=== PATIENT | female | born 1990 | race Two or more races ===

== ENCOUNTER 2018-02-27 01:13 | Inpatient (IN) | payer MEDICAID ==
[2018-02-27] MEDS ORDERED: LORazepam 0.5 MG TABLET PO STA (01:30)
[2018-02-27 01:48] LABS: BASOPHILS % (AUTO) 0.4 %; EOSINOPHILS # (AUTO) 0.1 10^3/uL (0.0-0.7); EOSINOPHILS % (AUTO) 1.5 %; HGB - HEMOGLOBIN 12.4 g/dL (12.0-16.0); LYMPHOCYTES # (AUTO) 2.4 10^3/uL (1.5-3.5); MEAN CORPUSCULAR HEMOGLOBIN 28.3 pg (27.0-31.0); MEAN CORPUSCULAR HGB CONC 32.6 g/dL (32.0-36.0); MEAN CORPUSCULAR VOLUME 86.8 fL (81.0-99.0); MEAN PLATELET VOLUME 8.2 fL (7.9-10.8); MONOCYTES # (AUTO) 0.6 10^3/uL (0.0-1.0); NEUTROPHILS # (AUTO) 5.5 10^3/uL (1.5-6.6); NEUTROPHILS % (AUTO) 63.1 %; PLT - PLATELET COUNT 336 10^3/uL (130-450); RED BLOOD COUNT 4.38 10^6/uL (4.20-5.40); RED CELL DISTRIBUTION WIDTH 15.8 % (12.0-15.0); WHITE BLOOD COUNT 8.7 x10^3/uL (4.8-10.8)
[2018-02-27 01:59] LABS: ALBUMIN 4.4 g/dL (3.2-5.5); ALBUMIN/GLOBULIN RATIO 1.2 (1.0-2.2); BILIRUBIN,TOTAL 0.7 mg/dL (0.2-1.0); CALCIUM 9.5 mg/dL (8.5-10.3); CREATININE 0.6 mg/dL (0.4-1.0); TOTAL PROTEIN 8.2 g/dL (6.7-8.2)
[2018-02-27 02:05] LABS: BILIRUBIN,URINE NEGATIVE (NEGATIVE); GLUCOSE, URINE (UA) NEGATIVE (NEGATIVE); KETONES,URINE (UA) NEGATIVE (NEGATIVE); LEUKOCYTE ESTERASE, URINE NEGATIVE (NEGATIVE); NITRITE,URINE NEGATIVE (NEGATIVE); OCCULT BLOOD,URINE SMALL (NEGATIVE); PH,URINE 6.5 PH (5.0-7.5); PROTEIN,URINE NEGATIVE (NEGATIVE); UROBILINOGEN,URINE 0.2 (NORMAL) E.U./dL (NORMAL)
[2018-02-27 02:07] LABS: CLARITY,URINE CLEAR (CLEAR)
[2018-02-27 02:08] LABS: HCG UR QUAL NEGATIVE
[2018-02-27 02:12] LABS: BACTERIA,URINE Few /HPF (None Seen); MUCUS,URINE Marked Strands; SQUAMOUS EPITHELIAL CELL,UR MOD Squamous (<= Few)
--- NOTE | 2018-02-27 02:35 | XRAY Report ---
Procedure Date: 02/27/2018 Accession Number: [id number] / [id number] Procedure: XR - Chest 1 View X-Ray CPT Code: 24747 FULL RESULT: EXAM: CHEST RADIOGRAPHY EXAM DATE: 02/27/2018 02:18 AM. CLINICAL HISTORY: Chest pain. COMPARISON: None. TECHNIQUE: 1 view. FINDINGS: Lungs/Pleura: Large left pneumothorax with near complete left lung atelectasis. Possible mild right apical airspace opacity. No right pneumothorax or effusion. Mediastinum: Within exam limitations, the cardiomediastinal contour is normal. Other: None. IMPRESSION: 1. Large left pneumothorax without significant mediastinal shift. 2. Possible mild right apical airspace opacity versus superimposition of shadows. Continued follow-up suggested. JIM The above findings were discussed with Gaston Jiménez by Dr. Boris Sparrow at 02:34 hrs on 02/27/18.
[2018-02-27] MEDS ORDERED: LIDOCAINE 2%-EPI 1:100000 20 ML MDV SUBQ STA (02:46)
[2018-02-27] MEDS ORDERED: fentaNYL 100 MCG/2 ML VIAL IVP STA ×2 (02:46→03:51)
[2018-02-27] MEDS ORDERED: LIDOCAINE 2%-EPI 1:100000 20 ML MDV ONE (03:41)
--- NOTE | 2018-02-27 03:55 | ED Physician Documentation ---
PD HPI CHEST PAIN - Stated complaint Stated Complaint: CHEST PX - Chief complaint Chief Complaint: Resp - History obtained from History obtained from: Patient - History of Present Illness Timing - onset: How many weeks ago (1) Timing - onset during: Rest Timing - details: Gradual onset, Still present Quality: Pressure, Aching Location: Left chest, Right chest Associated symptoms: Shortness of air. No: Diaphoresis, Nausea Similar symptoms before: Has not had sx before Recently seen: Not recently seen - Additional information Additional information: Patient is a 27 year old female with no significant past medical history who is presenting to the emergency department for chest pain. patient states that the pain has been going on for about a week or so. patient states that she feels like she can't catch her breath. patient denies any fever or chills. patient denies any history of blood clots or exogenous estrogen. Review of Systems Constitutional: denies: Fever, Chills Cardiac: reports: Chest pain / pressure. denies: Pedal edema Respiratory: reports: Dyspnea. denies: Cough, Hemoptysis, Wheezing GI: denies: Nausea, Vomiting Musculoskeletal: denies: Extremity pain, Extremity swelling PD PAST MEDICAL HISTORY - Past Medical History Past Medical History: No - Past Surgical History Past Surgical History: No - Allergies Allergies/Adverse Reactions: Allergies Allergy/AdvReac Type Severity Reaction Status Date / Time No Known Drug Allergies Allergy Verified 02/27/18 01:21 - Social History Does the pt smoke?: No Smoking Status: Never smoker Does the pt drink ETOH?: Yes Does the pt have substance abuse?: No - Immunizations Immunizations are current?: Yes - POLST Patient has POLST: No PD ED PE NORMAL - Vitals Vital signs reviewed: Yes - General General: Alert and oriented X 3, No acute distress - HEENT HEENT: Atraumatic - Neck Neck: Supple, no meningeal sign, No JVD - Cardiac Cardiac: RRR - Abdomen Abdomen: Soft, Non tender, Non distended - Derm Derm: Normal color, Warm and dry - Extremities Extremities: No deformity, No calf tenderness / cord - Neuro Neuro: Alert and oriented X 3 Eye Opening: Spontaneous Motor: Obeys Commands Verbal: Oriented GCS Score: 15 - Psych Psych: Normal mood PD ED PE EXPANDED - Respiratory Respiratory: Decreased breath sounds, Left upper lobe, Left lower lobe Results - Vitals Vitals: Vital Signs - 24 hr 02/27/18 02/27/18 02/27/18 01:18 01:35 02:45 Temperature 37.0 C Heart Rate 93 103 H Respiratory 20 18 15 Rate Blood Pressure 124/79 118/80 130/80 O2 Saturation 99 99 100 02/27/18 02/27/18 02/27/18 02:55 03:02 03:20 Temperature Heart Rate 83 104 H 101 H Respiratory 18 22 16 Rate Blood Pressure 118/71 120/69 114/68 O2 Saturation 100 100 100 02/27/18 02/27/18 03:35 03:49 Temperature Heart Rate 102 H 72 Respiratory 18 18 Rate Blood Pressure 111/57 L 115/69 O2 Saturation 100 100 Oxygen O2 Source Room air - EKG (time done) 0128 Rate: Rate (enter#) (88) Cummings: Normal Intervals: Normal OK QRS: Normal Ischemia: Normal ST segments Compare to prior EKG: Old EKG unavailable - Labs Labs: Laboratory Tests 02/27/18 02/27/18 02/27/18 01:40 01:41 01:41 WBC 8.7 RBC 4.38 Hgb 12.4 Hct 38.0 MCV 86.8 MCH 28.3 MCHC 32.6 RDW 15.8 H Plt Count 336 MPV 8.2 Neut # (Auto) 5.5 Lymph # (Auto) 2.4 Franklin # (Auto) 0.6 Eos # (Auto) 0.1 Baso # (Auto) 0.0 Absolute Nucleated RBC 0.00 Nucleated RBC % 0.0 Sodium 139 Potassium 3.2 L Chloride 106 Carbon Dioxide 25 Anion Gap 8.0 BUN 11 Creatinine 0.6 Estimated GFR (MDRD) 121 Glucose 124 H Calcium 9.5 Total Bilirubin 0.7 AST 16 ALT 11 Alkaline Phosphatase 53 Troponin I Total Protein 8.2 Albumin 4.4 Globulin 3.8 Albumin/Globulin Ratio 1.2 Lipase 22 Urine Color YELLOW Urine Clarity CLEAR Urine pH 6.5 Ur Specific [place] 1.020 Urine Protein NEGATIVE Urine Glucose (UA) NEGATIVE Urine Ketones NEGATIVE Urine Occult Blood SMALL H Urine Nitrite NEGATIVE Urine Bilirubin NEGATIVE Urine Urobilinogen 0.2 (NORMAL) Ur Leukocyte Esterase NEGATIVE Urine RBC 6-10 H Urine WBC 0-3 Ur Squamous Epith Cells MOD Squamous H Urine Bacteria Few Urine Mucus Marked Strands Ur Microscopic Review INDICATED Urine Culture Comments NOT INDICATED Urine HCG, Qual NEGATIVE 02/27/18 01:41 WBC RBC Hgb Hct MCV MCH MCHC RDW Plt Count MPV Neut # (Auto) Lymph # (Auto) [place] # (Auto) Eos # (Auto) Baso # (Auto) Absolute Nucleated RBC Nucleated RBC % Sodium Potassium Chloride Carbon Dioxide Anion Gap BUN Creatinine Estimated GFR (MDRD) Glucose Calcium Total Bilirubin AST ALT Alkaline Phosphatase Troponin I < 0.04 Total Protein Albumin Globulin Albumin/Globulin Ratio Lipase Urine Color Urine Clarity Urine pH Ur Specific [place] Urine Protein Urine Glucose (UA) Urine Ketones Urine Occult Blood Urine Nitrite Urine Bilirubin Urine Urobilinogen Ur Leukocyte Esterase Urine RBC Urine WBC Ur Squamous Epith Cells Urine Bacteria Urine Mucus Ur Microscopic Review Urine Culture Comments Urine HCG, Qual - Rads (name of study) chest x-ray Radiology: Final report received, Discussed with rads (large right sided pneumothorax) repeat chest x-ray Radiology: Final report received (small residual pneumo) Procedures - Chest Tube (location) left Chest tube preparation: Consent obtained Chest tube location: Left, Intercostal space - enter (2), Other (mid clavicular line) Chest tube anesthesia: Lidocaine Chest tube return: Air, Connected to suction Chest tube after care: Confirmed with xray, Pt tolerated well PD MEDICAL DECISION MAKING - ED course Complexity details: reviewed old records, reviewed results, re-evaluated patient , considered differential, d/w patient, d/w strategy execution consultant ED course: Patient was seen and examined at bedside. ekg was performed and was within normal limits. labs were drawn and chest x-ray was performed. when patient returned from chest x-ray results were reviewed and discussed with radiologist. patient had a large, left sided pneumothorax. Patient was consented and a left sided thoracic vent was placed. Patient had good results and the pneumothorax was almost resolved. Case was discussed with the solutions executive cloud sales surgeon, Dr. Maria Luz Murphy and patient was admitted under his service for further evaluation and care. - Sepsis Event Vital Signs: Vital Signs - 24 hr 02/27/18 02/27/18 02/27/18 01:18 01:35 02:45 Temperature 37.0 C Heart Rate 93 103 H Respiratory 20 18 15 Rate Blood Pressure 124/79 118/80 130/80 O2 Saturation 99 99 100 02/27/18 02/27/18 02/27/18 02:55 03:02 03:20 Temperature Heart Rate 83 104 H 101 H Respiratory 18 22 16 Rate Blood Pressure 118/71 120/69 114/68 O2 Saturation 100 100 100 //18 02/27/18 03:35 03:49 Temperature Heart Rate 102 H 72 Respiratory 18 18 Rate Blood Pressure 111/57 L 115/69 O2 Saturation 100 100 Oxygen O2 Source Room air Departure - Departure Disposition: [facility] DC/Xfer Clinical Impression: Pneumothorax on left Condition: Good
--- NOTE | 2018-02-27 04:02 | XRAY Report ---
Procedure Date: 02/27/2018 Accession Number: [id number] / [id number] Procedure: XR - Chest 1 View X-Ray CPT Code: 65457 FULL RESULT: EXAM: CHEST RADIOGRAPHY EXAM DATE: 02/27/2018 03:48 AM. CLINICAL HISTORY: Chest tube placement for pneumothorax COMPARISON: Earlier same morning. TECHNIQUE: 1 view. FINDINGS: Lungs/Pleura: Minimal residual left pneumothorax post chest tube placement. Reexpansion of left lung. Previous impression right apical airspace opacity no longer seen. Mediastinum: Within exam limitations, the cardiomediastinal contour is normal. Other: None. IMPRESSION: Minimal residual left pneumothorax post chest tube placement. No mediastinal shift. RADIA
[2018-02-27] MEDS ORDERED: IBUPROFEN 600 MG TABLET PO PRN (04:30)
[2018-02-27] MEDS: oxyCODONE 5 MG TABLET PO PRN ×2 (05:33→10:27)
[2018-02-27] MEDS: KETOROLAC 30 MG/ML VIAL IVP PRN ×2 (06:16→14:40)
[2018-02-27] MEDS: SODIUM CHLORIDE FLUSH 0.9% 10 ML SYRINGE IVP PRN (06:17)
[2018-02-27] MEDS: ACETAMINOPHEN 325 MG TABLET PO PRN ×2 (06:17→10:27)
[2018-02-27] MEDS: D5.45NS W/20 MEQ KCL 1,000 ML IV SCH ×2 (06:17→16:44)
--- NOTE | 2018-02-27 07:31 | HISTORY & PHYSICAL EXAMINATION ---
Chief Complaint - Chief Complaint Chief Complaint: left sided chest pain and SOB History of Present Illness - Admitted From Admitted From:: ER - History Obtained From Records Reviewed: yes History obtained from: pt Exam Limitations: none - History of Present Illness HPI Comment/Other: 27 yo female with 2 week hx of intermittent left anterior chest pain and mild MCCORD which acutely worsened around 11pm last night prompting ER evaluation which showed large left tension PTX. She notes no prior similar sx, no fever/chills, cough, sputum production. Neg FH of spontaneous PTX. Sx markedly improved following chest tube insertion. Now c/o discomfort from tube, especially with inspiration, but no dyspnea. History - Past Medical History Cardiovascular: reports: None Neuro: reports: None Endocrine/Autoimmune: reports: None GI: reports: None : reports: None Psych: reports: None Musculoskeletal: reports: None Derm: reports: None MRSA Hx?: No - Family & Social History Family History Comment/Other: neg for spontaneous PTX Living arrangement: At home - Substance History Use: Uses substance without health or social issues: Alcohol (social, less than 1/day) Abuse: Recurrent use of substance despite neg consequences: NONE Dependence: Experiences withdrawal or developed tolerances: NONE - POLST Patient has POLST: No POLST Status: Full Code Meds/Allgy - Allergies Allergies/Adverse Reactions: Allergies Allergy/AdvReac Type Severity Reaction Status Date / Time No Known Drug Allergies Allergy Verified 02/27/18 01:21 Review of Systems - Constitutional Constitutional: reports: Fever, Chills, Weakness, Weight gain, Weight loss - Cardiovascular Cariovascular: reports: Chest pain, Exertional dyspnea. denies: Irregular heart rate, Palpitations, Edema, Lightheadedness, Syncope - Respiratory Respiratory: reports: SOB at rest, SOB with exertion, Pleuritic pain. denies: Cough, Sputum production, Wheezing - Gastrointestinal Gastrointestinal: denies: Abdominal pain - Hematologic/Lymphatic Hematologic/Lymphatic: denies: Petechiae, Blood clots, Bleeding tendencies - All Other Systems All Other Systems: reports: Reviewed and negative Exam - Vital Signs Reviewed Vital Signs: Yes Vital Signs: Vital Signs x48h Pulse Resp BP Pulse Ox 02/27/18 04:39 88 20 119/74 100 - Physical Exam General Appearance: positive: No acute distress, Alert Eyes Bilateral: positive: Normal inspection, Conjunctivae nml, No scleral icterus ENT: positive: ENT inspection nml, Pharynx nml, No signs of dehydration Neck: positive: No JVD, Trachea midline. negative: Lymphadenopathy (R), Lymphadenopathy (L) Respiratory: positive: Chest non-tender, No respiratory distress, Breath sounds nml, Other (Rubén-Close device on left anterior chest wall; connected to Atrium drainage system; visible air leak with expiration;). negative: Wheezes, Rales, Rhonchi Cardiovascular: positive: Regular rate & rhythm, No murmur, No gallop Peripheral Pulses: positive: 2+ Abdomen: positive: Non-tender, No organomegaly, No distention Skin: positive: Color nml, No rash, Warm, Dry. negative: Cyanosis, Diaphoresis Extremities: positive: Non-tender, Full ROM, Nml appearance. negative: Pedal edema, Calf tenderness Neurologic/Psychiatric: positive: Oriented x3 Conclusion/Plan - Problem List (1) Pneumothorax on left Conclusion/Plan: Spontaneous, with ongoing air leak at present; no visible bullous disease on CXR. Plan: continue chest tube to -20 cm underwater suction; supplemental 02; serial CXRs; CT chest to assess for bullous disease. Referral for VATS procedure if bullae noted or air leak fails to seal over next 48 hrs. - Lab Results Fish Bones: 02/27/18 01:41 02/27/18 01:41 - Diagnostic Imaging Results Diagnostic Imaging Results: positive: Final report reviewed, Read independently Diagnostic Imaging Results Comments: Initial CXR: large left PTX with midline mediastinum suggestive of tension. F/u CXR following chest tube insertion: almost complete resolution of the PTX, with small apical residual PTX evident. - EKG Results EKG Interpreted Independently: No EKG Comparison: No prior EKG EKG Findings: NL
[2018-02-27] MEDS: ONDANSETRON 4 MG/2 ML VIAL IVP PRN (10:23)
[2018-02-27] MEDS: SODIUM CHLORIDE FLUSH 0.9% 10 ML SYRINGE IVP SCH ×2 (10:32→16:44)
--- NOTE | 2018-02-27 11:27 | XRAY Report ---
Procedure Date: 02/27/2018 Accession Number: [id number] / [id number] Procedure: XR - Chest 1 View X-Ray CPT Code: 69026 FULL RESULT: EXAM: Chest 1 View X-Ray DATE: 02/27/2018 7:19 AM CLINICAL HISTORY: f/u ptx COMPARISON: 02/27/2018 3:48 AM TECHNIQUE: Single view of the chest. FINDINGS/IMPRESSION: Stable size left apical pneumothorax with left chest tube in place. No significant change compared with earlier the same day. RADIA
[2018-02-27] MEDS: POLYETHYLENE GLYCOL 3350 17 GM PACKET PO SCH (12:15)
[2018-02-28] MEDS: KETOROLAC 30 MG/ML VIAL IVP PRN ×2 (00:48→09:19)
[2018-02-28] MEDS: SODIUM CHLORIDE FLUSH 0.9% 10 ML SYRINGE IVP SCH ×3 (00:49→19:11)
[2018-02-28] MEDS: oxyCODONE 5 MG TABLET PO PRN ×5 (02:09→21:12)
[2018-02-28] MEDS: D5.45NS W/20 MEQ KCL 1,000 ML IV SCH ×2 (02:18→14:20)
--- NOTE | 2018-02-28 07:05 | XRAY Report ---
Procedure Date: 02/28/2018 Accession Number: [id number] / [id number] Procedure: XR - Chest 1 View X-Ray CPT Code: 45558 FULL RESULT: EXAM: CHEST RADIOGRAPHY EXAM DATE: 02/28/2018 05:53 AM. CLINICAL HISTORY: Follow-up chest tube. COMPARISON: 02/27/2018. TECHNIQUE: 1 view. FINDINGS: Lungs/Pleura: Small left apical pneumothorax measuring 1.4 cm. No alveolar consolidation or pleural effusion seen. Mediastinum: Within exam limitations, the cardiomediastinal contour is normal. Other: Chest tube remains in place on the left. IMPRESSION: 1. Left chest tube in place. Small left apical pneumothorax measuring 1.4 cm. RADIA
[2018-02-28] MEDS: ONDANSETRON 4 MG/2 ML VIAL IVP PRN ×3 (09:19→20:47)
[2018-02-28] MEDS: POLYETHYLENE GLYCOL 3350 17 GM PACKET PO SCH (10:01)
--- NOTE | 2018-02-28 14:53 | PROVIDER PROGRESS NOTE ---
Subjective - General Admit Date: 02/27/18 Procedure Date: 02/27/18 Post Op Days: 1 Procedure Performed: Rubén-Close chest tube insertion on left - Review of Systems Wound/Incisions: positive: Dressing dry and intact, Drainage (minimal) Drain Type: Atrium underwater seal chest tube drainage system Drain Output Description: serosanguinous Approximate mls Output: 10/24hrs General: positive: No symptoms Pulmonary: positive: Pleuritic chest pain (mild, well controlled with analgesics ). negative: Shortness of breath, Cough, Sputum, Hemoptysis, Wheezing Cardiovascular: positive: No symptoms Gastrointestinal: positive: No symptoms All Other Systems: positive: Reviewed and negative - Other Other Information/Narrative: Tolerating chest tube well at present. Objective - Patient Data Reviewed Vital Signs: Yes Vital Signs: Vital Signs x48h Temp Pulse Resp BP Pulse Ox 02/28/18 07:48 37.0 C 66 18 106/53 L 99 Weight: Weight 02/26/18 02/27/18 02/28/18 23:59 23:59 23:59 Weight (kg) 52 kg Intake & Output: Intake and Output Totals x24h 02/26/18 02/27/18 02/28/18 23:59 23:59 23:59 Intake Total 2046 2262.667 Output Total 15 Balance 2046 2247.667 - Lab Results Lab Results: 02/27/18 01:41 02/27/18 01:41 - Imaging Results Radiology Imaging: positive: Final report received, EMP read indepedently Imaging Results Comments: persistent small apical PTX, unchanged from yesterday. - Current Medications Current Medications: Current Medications Generic Name Dose Route Start Last Admin Trade Name Freq PRN Reason Stop Dose Admin Acetaminophen 650 mg 02/27/18 04:30 02/27/18 10:27 Tylenol PO 650 mg Q4HR PRN Administration Pain 1 to 4 Potassium Chloride/Dextrose/Sod Cl 1,000 mls @ 80 mls/hr 02/27/18 05:00 02/28 14:20 D5.45ns W/20 Meq Kcl IV 80 mls/hr .[id number] STARR Administration Ketorolac Tromethamine 30 mg 02/27/18 06:06 02/28/18 09:19 Toradol Inj IVP 03/04/18 06:05 30 mg Q6HR PRN Administration PAIN Ondansetron HCl 4 mg 02/27/18 04:30 02/28/18 14:18 Zofran Inj IVP 4 mg Q6HR PRN Administration Nausea / Vomiting Oxycodone HCl 5 mg 02/27/18 04:30 02/28/18 14:18 Roxicodone PO 5 mg Q4HR PRN Administration Pain 5 to 7 Polyethylene Glycol 17 gm 02/27/18 09:00 02/28/18 10:01 Miralax PO Not Given DAILY [facility] Sodium Chloride 10 ml 02/27/18 04:30 02/27/18 06:17 Normal Saline Flush 0.9% IVP 10 ml PRN PRN Administration NEEDED PER PROVIDER ORDERS Sodium Chloride 10 ml 02/27/18 09:00 02/28/18 10:01 Normal Saline Flush 0.9% IVP 10 ml 0100,0900,1700 [facility] Administration - Physical Exam Wound/Incisions: positive: Dressing dry and intact, Other (Rubén close device in place.) General Appearance: positive: No acute distress, Alert Respiratory: positive: Chest non-tender, No respiratory distress, Breath sounds nml, Other (small air leak persists with each expiration; tube on -20 cm H2O suction.). negative: Wheezes, Rales, Rhonchi Cardiovascular: positive: Regular rate & rhythm, No murmur, No gallop Extremities: positive: Nml appearance, No pedal edema. negative: Calf tenderness Neurologic/Psychiatric: positive: Oriented x3 ABX Reporting Has patient been on IV antibiotics over the past 48 hours?: No Impression/Plan - Problem List Problem List: Left spontaneous PTX; clinically doing well except small persistent air leak. Plan: continue present therapy. If air leak persists tomorrow, after 48 hours of therapy, will try switching to water seal, and obtain a chest CT.
[2018-02-28] MEDS: SODIUM CHLORIDE FLUSH 0.9% 10 ML SYRINGE IVP PRN (20:54)
[2018-03-01] MEDS: SODIUM CHLORIDE FLUSH 0.9% 10 ML SYRINGE IVP SCH ×2 (00:31→10:02)
[2018-03-01] MEDS: oxyCODONE 5 MG TABLET PO PRN (05:44)
[2018-03-01 06:28] LABS: CALCIUM 8.7 mg/dL (8.5-10.3); CREATININE 0.6 mg/dL (0.4-1.0)
--- NOTE | 2018-03-01 07:01 | XRAY Report ---
Procedure Date: 03/01/2018 Accession Number: [id number] / [id number] Procedure: XR - Chest 1 View X-Ray CPT Code: 45439 FULL RESULT: EXAM: CHEST RADIOGRAPHY EXAM DATE: 03/01/2018 06:37 AM. CLINICAL HISTORY: Follow-up pneumothorax. COMPARISON: 02/28/2018, 0552 hrs.. TECHNIQUE: 1 view. FINDINGS: Lungs/Pleura: No alveolar consolidation or pleural effusion seen. Increased left pneumothorax, moderate to large, measuring 4.1 cm at the apex. Mediastinum: Within exam limitations, the cardiomediastinal contour is normal. Other: Left chest tube remains in place. IMPRESSION: 1. Increased left pneumothorax, now moderate to large, measuring 4.1 cm at the apex. 2. Left chest tube remains in place. RADIA The above findings were discussed with Yazan Murphy by Dr. Ac Orantes at 06:58 hrs on 03/01/18.
--- NOTE | 2018-03-01 07:01 | CT Report ---
Procedure Date: 03/01/2018 Accession Number: [id number] / [id number] Procedure: CT - Chest W/O CPT Code: FULL RESULT: EXAM: CT CHEST EXAM DATE: 03/01/2018 06:38 AM. CLINICAL HISTORY: Spontaneous pneumothorax; evaluate for bullous disease. COMPARISONS: None. TECHNIQUE: Routine helical CT imaging was performed through the chest. IV contrast: None. Reconstructions: Coronal and sagittal. In accordance with CT protocol optimization, one or more of the following dose reduction techniques were utilized for this exam: automated exposure control, adjustment of mA and/or KV based on patient size, or use of iterative reconstructive technique. FINDINGS: Lungs/Pleura: Mild biapical scarring. Mild bibasilar atelectasis. No significant bullous changes are appreciated. No shirlene alveolar consolidation. No pleural effusion. Moderate to large left pneumothorax. Mediastinum: Heart size is normal. No lymphadenopathy seen. Great vessels are unremarkable on this noncontrast examination. Bones: Unremarkable. Visualized Abdomen: Unremarkable. Other: Anterior chest tube in place on the right. This extends about 8.5 cm into the pleural space. IMPRESSION: 1. No significant bullous disease is appreciated. 2. Moderate to large left pneumothorax. Anterior left chest tube in place. RADIA The above findings were discussed with Yazan Murphy by Dr. Ac Orantes at 07:00 hrs on 03/01/18.
--- NOTE | 2018-03-01 08:07 | XRAY Report ---
Procedure Date: 03/01/2018 Accession Number: [id number] / [id number] Procedure: XR - Chest 1 View X-Ray CPT Code: 81278 FULL RESULT: EXAM: CHEST RADIOGRAPHY EXAM DATE: 03/01/2018 07:27 AM. CLINICAL HISTORY: F/u PTX; pt back on suction. COMPARISON: 5:56 AM chest x-ray same day. TECHNIQUE: 1 view. Exam time 7:11 AM FINDINGS: Lungs/Pleura: Enlarging left apical pneumothorax of 5 cm pleural separation, previously 4.1 cm. Stable lateral left apical chest tube. Mediastinum: Within exam limitations, the cardiomediastinal contour is normal. Other: None. IMPRESSION: 1. Moderate left-sided pneumothorax with interval increase in size. A subsequent chest x-ray has already been taken. Please see report for 7:43 AM film. RADIA
--- NOTE | 2018-03-01 08:08 | XRAY Report ---
Procedure Date: 03/01/2018 Accession Number: [id number] / [id number] Procedure: XR - Chest 1 View X-Ray CPT Code: 15809 FULL RESULT: EXAM: CHEST RADIOGRAPHY EXAM DATE: 03/01/2018 07:55 AM. CLINICAL HISTORY: F/u left PTX, after chest tube manipulation. COMPARISON: 7:11 AM chest x-ray same day. TECHNIQUE: 1 view. Exam time 7:43 AM FINDINGS: Lungs/Pleura: Left apical pneumothorax with 1.2 cm pleural separation, previously 5 cm on 7:11 AM film. Stable lateral left apical chest tube. Mediastinum: Within exam limitations, the cardiomediastinal contour is normal. Other: None. IMPRESSION: 1. Significant decrease in size of left apical pneumothorax since prior chest x-ray same day. RADIA
--- NOTE | 2018-03-01 08:32 | PROVIDER PROGRESS NOTE ---
Subjective - General Admit Date: 02/27/18 Procedure Date: 02/27/18 Post Op Days: 2 Procedure Performed: Rubén-Close chest tube insertion on left - Review of Systems Wound/Incisions: positive: Dressing dry and intact, Other (Rubén close device in place.) Drain Type: Atrium underwater seal chest tube drainage system Drain Output Description: serosanguinous Approximate mls Output: 20/24hrs General: positive: No symptoms Pulmonary: positive: Pleuritic chest pain (mild, well controlled with analgesics ). negative: Shortness of breath, Cough, Sputum, Hemoptysis, Wheezing Cardiovascular: positive: No symptoms Gastrointestinal: positive: No symptoms All Other Systems: positive: Reviewed and negative - Other Other Information/Narrative: Pt's chest tube was placed on water seal and sent to the department for a f/u CXR and chest CT. These studies showed enlargement of the PTX. Pt was returned to her room and suction was reapplied; a f/u CXR showed no improvement. Pt continued to be asymptomatic however, with no dyspnea and O2 sat of 100% on 2l by nasal cannula. Pt reports several prior episodes of pneumonia as a child; her PPD was neg in 2008. Objective - Patient Data Reviewed Vital Signs: Yes Vital Signs: Vital Signs x48h Temp Pulse Resp BP Pulse Ox 03/01/18 08:06 36.8 C 74 16 111/51 L 100 Weight: Weight 02/27/18 02/28/18 03/01/18 23:59 23:59 23:59 Weight (kg) 52 kg Intake & Output: Intake and Output Totals x24h 02/27/18 02/28/18 03/01/18 23:59 23:59 23:59 Intake Total 2045 2662.667 350 Output Total 21 6 Balance 2045 2641.667 344 - Lab Results Lab Results: 02/27/18 01:41 03/01/18 06:05 Other Lab Results: Lab Results x24hrs 03/01/18 Range/Units 06:05 Sodium 135 (135-145) mmol/L Potassium 3.8 (3.5-5.0) mmol/L Chloride 101 (101-111) mmol/L Carbon Dioxide 26 (21-32) mmol/L Anion Gap 8.0 (6-13) BUN 9 (6-20) mg/dL Creatinine 0.6 (0.4-1.0) mg/dL Estimated GFR (MDRD) 121 (>89) Glucose 109 H (70-100) mg/dL Calcium 8.7 (8.5-10.3) mg/dL - Imaging Results Radiology Imaging: positive: Final report received, Discussed with rads, EMP read contemporaneously Imaging Results Comments: Pt's chest tube was placed on water seal and sent to the department for a f/u CXR and chest CT. These studies showed enlargement of the PTX. chest tube in good position and biapical scarring on CT. Pt was returned to her room and suction was reapplied; a f/u CXR showed no improvement. Exam of drainage system showed no evidence of an air leak, suggesting malfunction of the system; the pink diaphragm was moving with cough suggesting patency of the chest tube; the suction tube connecting to the Rubén Close device was removed and replaced, with resultant resumption of nl function of the system, with air leak now again noted, and f/u CXR showed return to the appearance noted yesterday, with a small apical residual PTX and the chest tube in good position. - Current Medications Current Medications: Current Medications Generic Name Dose Route Start Last Admin Trade Name Freq PRN Reason Stop Dose Admin Acetaminophen 650 mg 02/27/18 04:30 02/27/18 10:27 Tylenol PO 650 mg Q4HR PRN Administration Pain 1 to 4 Ketorolac Tromethamine 30 mg 02/27/18 06:06 02/28/18 09:19 Toradol Inj IVP 03/04/18 06:05 30 mg Q6HR PRN Administration PAIN Ondansetron HCl 4 mg 02/27/18 04:30 02/28/18 20:47 Zofran Inj IVP 4 mg Q6HR PRN Administration Nausea / Vomiting Oxycodone HCl 5 mg 02/27/18 04:30 03/01/18 05:44 Roxicodone PO 5 mg Q4HR PRN Administration Pain 5 to 7 Polyethylene Glycol 17 gm 02/27/18 09:00 02/28/18 10:01 Miralax PO Not Given DAILY STARR Sodium Chloride 10 ml 02/27/18 04:30 02/28/18 20:54 Normal Saline Flush 0.9% IVP 10 ml PRN PRN Administration NEEDED PER PROVIDER ORDERS Sodium Chloride 10 ml 02/27/18 09:00 06/20/18 00:31 Normal Saline Flush 0.9% IVP 10 ml 0100,0900,1700 [facility] Administration - Physical Exam Wound/Incisions: positive: Dressing dry and intact General Appearance: positive: No acute distress, Alert Neck: positive: No JVD, Trachea midline Respiratory: positive: Chest non-tender, Other (slight decrease in breath sounds at left apex.). negative: Wheezes, Rales, Rhonchi Cardiovascular: positive: Regular rate & rhythm, No murmur, No gallop Abdomen: positive: Non-tender Skin: positive: Color nml, No rash, Warm, Dry. negative: Cyanosis Extremities: positive: Non-tender, Full ROM, Nml appearance, No pedal edema. negative: Calf tenderness Neurologic/Psychiatric: positive: Oriented x3 ABX Reporting Has patient been on IV antibiotics over the past 48 hours?: No Impression/Plan - Problem List Problem List: Spontaneous left PTX with persistent air leak suggesting non healing broncho pleural fistula, possibly related to apical scarring/damage to lung from prior episode(s) of pneumonitis. Pt failed trial on water seal, and now would appear to benefit from a VATS procedure to stop the air leak. Discussed with pt, who is agreable to transfer to for same. Transfer arrangements will be made.
[2018-03-01] MEDS: ONDANSETRON 4 MG/2 ML VIAL IVP PRN (10:02)
--- NOTE | 2018-03-01 11:37 | Discharge Plan ---
Discharge Plan Disposition: 02 Transfer Acute Care Hosp Condition: Good Diet: Regular Activity Restrictions: elevate HOB 30 degrees Shower Restrictions: Yes Additional Instructions or Follow Up instructions: Pt will be transferred to [facility] for Thoracic Surgical consultation and treatment as appropriate. No Smoking: If you smoke, Please STOP! Call for help.
--- NOTE | 2018-03-01 11:42 | DISCHARGE SUMMARY ---
"Discharge Summary Admit Date: 02/27/18 Discharge Date: 03/01/18 Discharging Provider: Dr. Yazan Murphy Code Status: Attempt Resuscitation Condition at Discharge: Good Discharge Disposition: 02 Transfer Acute Care Hosp Discharge Facility Name: [facility] - DIAGNOSES Admission Diagnoses: Spontaneous left pneumothorax. 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 - HPI History of Present Illness: See H&P by Dr. Murphy - CONSULTS | PROCEDURES Procedures: Rubén-close chest tube placed on 02/27/18 by ER physician. - HOSPITAL COURSE Hospital Course: Pt's sx resolved with chest tube placement; serial chest xrays showed persistent small left apical PTX, with tube in good position. Persistent air leak was noted with -20 cm water suction after 48 hours of therapy. Trial of water seal resulted in recurrence of moderately large PTX. CT chest showed biapical scarring and possible small bleb formation on the left. Suction was resumed and after correcting a temporary malfunction in the chest tube system, her left lung once again was nearly fully expanded, with persistent air leak. Case was discussed with Dr. Magdy Agustin, thocacic surgeon at [facility], who agreed with and accepted transfer of pt for consideration of VATS therapy. Pt is agreeable to transfer. Pt has remained stable with O2 sat 100% on 2l/min nasal cannula, stable vs and comfortable with unlabored respiration. Pt will be transferred with continued chest tube suction and supplemental oxygen. - ALLERGIES Allergies/Adverse Reactions: Allergies Allergy/AdvReac Type Severity Reaction Status Date / Time No Known Drug Allergies Allergy Verified 02/27/18 01:21 - MEDICATIONS Home Medications: Ambulatory Orders Medication Instructions Recorded Confirmed No Known Home Medications [No 02/27/18 02/27/18 Known Home Medications] - PHYSICAL EXAM AT DISCHARGE General Appearance: positive: No acute distress, Alert Eyes Bilateral: positive: Conjunctivae nml, No scleral icterus Neck: positive: No JVD, Trachea midline Respiratory: positive: Chest non-tender, No respiratory distress, Other (slight decrease in breath sounds apically on left; Rubén Close device in good position.) . negative: Wheezes, Rales, Rhonchi Cardiovascular: positive: Regular rate & rhythm, No murmur, No gallop Abdomen: positive: Non-tender Skin: positive: Color nml, Warm, Dry. negative: Cyanosis Extremities: positive: Nml appearance, No pedal edema. negative: Calf tenderness Neurologic/Psychiatric: positive: Oriented x3 - LABS Result Diagrams: 02/27/18 01:41 03/01/18 06:05 - DIAGNOSTIC IMAGING Diagnostic Imaging Results: Discussed with radiologist, Read independently Diagnostic Imaging Results Comments: See hospital course for details - FOLLOW UP Follow Up: as arranged by [facility]"
[2018-03-01 12:23] VITALS: BP 105/60
== END 2018-03-01 13:13 | disposition short-term general hospital (02) | DRG 201 ==
LOC: ED 01:13 → MS2 04:30
PROVIDERS: ADMIT Internal Medicine Gastroenterology; ATTEND Internal Medicine Gastroenterology
DX: J93.0 Spontaneous tension pneumothorax (principal); Z87.01 Personal history of pneumonia (recurrent)
CPT/HCPCS: 32551; 36415; 71045; 71250; 80048; 80053; 81001; 81003; 81025; 83690; 84484; 85025; 87086; 93005; 99284